=== PATIENT | female | born 1955 | race Caucasian/White ===

== ENCOUNTER 2017-05-08 21:51 | Emergency (ER) | payer BC, MEDICAID ==
[2016-11-06 11:57] VITALS: Ht 149.9 cm; Wt 72.6 kg
[~2017-05-08] VITALS: Ht 149.9 cm; Wt 72.6 kg
[2017-05-08] MEDS ORDERED: DIPHTH/TETANUS/ACEL. PERTUSSIS IM ONLY ONE (22:10)
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
[2017-05-08 22:19] VITALS: BP 127/78
== END 2017-05-08 22:26 | disposition home or self-care (01) ==
LOC: ER 22:03
DX: S00.01XA Abrasion of scalp, initial encounter (principal); W18.30XA Fall on same level, unspecified, initial encounter
CPT/HCPCS: 90471; 90715; 99284

== ENCOUNTER → 2017-05-08 | Outpatient (CLI) | payer MEDICAID ==
[2016-11-06 11:57] VITALS: BMI 31.5
[~2017-05-08] MED LIST: AGGRENOX PO; ASPI-1471 PO; CLOP75TA43 PO; DUL20 PO; DULO60CA7 PO; LISI-355 PO; LISI20TA29 PO; LORA-1455 PO; MEMA10TA3 PO; METO25TA93 PO; PRAV20TA66 PO
== END ==
LOC: AMB 21:41
PROVIDERS: ATTEND Nurse Practitioner
DX: S00.00XA Unspecified superficial injury of scalp, initial encounter (principal); R53.1 Weakness; W18.30XA Fall on same level, unspecified, initial encounter
CPT/HCPCS: A0425; A0427

== ENCOUNTER 2017-07-23 18:32 | Observation (INO) | payer MEDICAID ==
[2016-11-06 11:57] VITALS: Wt 83.0 kg
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
[2017-07-23] MEDS ORDERED: QUET25TA PO ×2 (18:49)
[2017-07-23] MEDS ORDERED: CITA-139 PO (18:49)
[2017-07-23 19:23] LABS: PLATELET COUNT, AUTOMATED 191 K/uL (150-450)
--- NOTE | 2017-07-23 19:40 | EKG ---
FACILITY: [facility] PATIENT NAME: CYNDI BOOGIE : [id number] MR: [id number] V: [id number] EXAM DATE: ORDERING PHYSICIAN: AMY EPPERSON TECHNOLOGIST: NICOLE Test Reason : AMS Blood Pressure : / mmHG Vent. Rate : 064 BPM Atrial Rate : 064 BPM P-R Int : 164 ms QRS Dur : 074 ms QT Int : 434 ms P-R-T Axes : 002 -17 057 degrees QTc Int : 447 ms Normal sinus rhythm Inferior infarct (cited on or before 18-AUG-2016) Abnormal ECG When compared with ECG of 05-NOV-2016 13:48, No significant change was found Confirmed by JASMYN ZHU ([id number]) on 07/24/2017 6:31:44 AM Referred By: Confirmed By:JASMYN ZHU
--- NOTE | 2017-07-23 19:53 | RADIOLOGY IMAGING REPORT ---
FACILITY: [facility] PATIENT NAME: Simin Prieto : 1955 MR: [id number] V: [id number] EXAM DATE: ORDERING PHYSICIAN: AMY EPPERSON TECHNOLOGIST: Location: [facility] [place] Patient: Simin Prieto : 1955 Visit/Account:[id number] Date of Sevice: 07/23/2017 CHEST SINGLE AP HISTORY: Altered mental status. COMPARISON: 08/18/2016. FINDINGS: A single portable AP view of the chest is obtained. Lines/tubes: None. Lungs/pleura: Mild linear scarring or atelectasis in the lateral left lung base. Heart: Negative. Mediastinum: Tortuous aorta with calcifications. Otherwise negative. Bony structures/body wall: Degenerative changes in the thoracic spine. No acute osseous findings. IMPRESSION: No acute cardiopulmonary process. Report Dictated By: Jefry Dalton MD at 07/23/2017 7:47 PM Report E-Signed By: Jefry Dalton MD at 07/23/2017 7:48 PM WSN:[id number]
[2017-07-23 21:21] VITALS: BP 162/84
[2017-07-23] MEDS ORDERED: LORazepam 0.5 MG TAB PO PRN (21:50)
[2017-07-23] MEDS ORDERED: INFLUENZA VIRUS VAC 0.5 ML SYR IM ONLY ONE (21:50)
--- NOTE | 2017-07-23 21:55 | History & Physical ---
History of Present Illness Chief Complaint Dementia History of Present Illness This patient was brought to the emergency room by EMS secondary to her primary caregiver being detained to behavioral health. She has advanced dementia after a stroke suffered some years ago. Her has been her primary plant health care technician, but he was detained earlier tonight. EMS decided to bring her into the emergency room because it was unsafe to leave her unattended. Arrangements for placement to the fpc were initiated in the emergency department, but could not be completed before all the offices closed. She has no complaints. History Problems: (1) Stroke (2) Dementia Status: Acute Home Meds Active Scripts Lorazepam (ATIVAN) 0.5 Mg Tablet, 0.5 MG PO BID Y for AGITATION, #20 Prov:AMY EPPERSON DO 08/18/16 Metoprolol Tartrate (METOPROLOL TARTRATE) 25 Mg Tablet, 1 TAB PO BID, #60 2 Refills TAKE ONE TABLET BY MOUTH TWICE A DAY Prov:RICKY CHAHAL MD 05/09/13 Reported Medications Quetiapine Fumarate (QUETIAPINE FUMARATE) 25 Mg Tablet, 12.5 MG PO 07/23/17 Quetiapine Fumarate (QUETIAPINE FUMARATE) 25 Mg Tablet, 25 MG PO hs 07/23/17 Citalopram Hydrobromide (CITALOPRAM HBR) 20 Mg Tablet, 20 MG PO QDAY, #5 TAB 07/23/17 Aspirin (ASPIR 81) 81 Mg Tablet.dr, 81 MG PO QDAY, TAB 08/18/16 Clopidogrel Bisulfate (PLAVIX) 75 Mg Tablet, 1 TAB PO QDAY, TAB 08/18/16 Memantine HCl 10 MG (Memantine HCl 10 MG) 10 Mg Tablet, 1 TAB PO DAILY 08/18/16 Lisinopril (LISINOPRIL) 20 Mg Tablet, 20 MG PO QDAY, TAB 08/18/16 Pravastatin Sodium (PRAVASTATIN SODIUM) 20 Mg Tablet, 20 MG PO QDAY 03/23/15 Discontinued Reported Medications Duloxetine HCl (Duloxetine HCl) 60 Mg Capsule.dr, 1 TAB PO DAILY 08/18/16 Allergies: Coded Allergies: No Known Drug Allergies (Unverified , 07/23/17) Patient History: FH: CVA (cerebrovascular accident) BROTHER OR SISTER FH: HTN (hypertension) FATHER FH: alcoholism BROTHER OR SISTER BROTHER OR SISTER FH: hyperlipidemia MOTHER Hx Smoking: No Smoking Status: Never Smoker Caffeine Intake: Soda Caffeine/Cups Per Day: 2 cups/per day Hx Alcohol Use: No Hx Substance Use Disorder: No Review of Systems All Systems Reviewed/Normal: Yes Exam Vital Signs Vital Signs Date Time Temp Pulse Resp B/P (MAP) Pulse Ox O2 Delivery O2 Flow Rate FiO2 07/23/17 21:00 123/84 (97) 07/23/17 20:47 65 94 07/23/17 18:38 99.2 20 Room Air Neuro: No Gross deficits Eyes: PERRLA Cardiovascular: Regular Rate and Rhythm Respiratory: Clear to Auscultation GI: Abd Soft and Non-Tender Extremities: No Edema Integumentary: No Cyanosis Medical Decision Making Data Points Result Diagram: 07/23/17190607/23/171906 Assessment and Plan Problems: (1) Dementia Status: Acute Assessment & Plan: She does have advanced dementia and is unable to provide care to herself. Arrangements are being made for placement to the fpc. Copies to: JASMYN MACIAS MD Venous Thromboembolism Antithrombotics Is Pt On Any Antithrombotics?: No Exam Sepsis Risk: No Definite Risk Problem Qualifiers (1) Dementia: Dementia type: Alzheimer's disease Alzheimer's disease onset: unspecified onset Dementia behavioral disturbance: with behavioral disturbance Qualified Codes: G30.9 - Alzheimer's disease, unspecified; F02.81 - Dementia in other diseases classified elsewhere with behavioral disturbance JASMYN ZHU DO Jul 23, 2017 21:55
[2017-07-24 07:25] VITALS: BP 133/78
[2017-07-24] MEDS ORDERED: CLOPIDOGREL BISULFATE 75MG TAB PO SCH (09:00)
[2017-07-24] MEDS ORDERED: METOPROLOL TART 50 MG TAB PO SCH (09:00)
[2017-07-24] MEDS ORDERED: LISINOPRIL 20 MG TAB PO SCH (09:00)
[2017-07-24] MEDS ORDERED: ASPIRIN 81 MG ENTERIC COATED PO SCH (09:00)
[2017-07-24] MEDS ORDERED: PRAVASTATIN SOD 20 MG TAB PO SCH (09:00)
[2017-07-24] MEDS ORDERED: CITALOPRAM HYDROBROM 20 MG TAB PO SCH (09:00)
[2017-07-24] MEDS ORDERED: MEMANTINE HCL 10 MG TABLET PO SCH (09:00)
--- NOTE | 2017-07-24 10:11 | Hospitalist Depart ---
Discharge Summary Reason for Hosp/Final Diag: (1) Dementia Status: Acute Hospital Course & Plan: She does have advanced dementia and is unable to provide care to herself. Arrangements are being made for placement to the custodial. 07/24: Mrs. Prieto is a 62 y.o. female with PMH of HTN, CVA, Dyslipidemia, Dementia and Depression who presented with AMS and she could not go back home due to lack of assistance at home. Therefore, she required NH placement. She is hemodynamically stable and afebrile today. She is currently receiving her home medications and hospice social worker has arranged her placement at [facility] for today. Therefore, She is being d/c'd today. [facility] Weight (Pounds): 183 Result Diagram: 07/23/17190607/23/171906 Condition: Improved Discharge: Assisted PT/OT Follow Up For: PT For Strengthening Time Spent: < 30 min Discharge Instructions Home Meds Active Scripts Lorazepam (ATIVAN) 0.5 Mg Tablet, 0.5 MG PO BID Y for AGITATION, #20 Prov:AMY EPPERSON DO 08/18/16 Metoprolol Tartrate (METOPROLOL TARTRATE) 25 Mg Tablet, 1 TAB PO BID, #60 2 Refills TAKE ONE TABLET BY MOUTH TWICE A DAY Prov:RICKY CHAHAL MD 05/09/13 Reported Medications Quetiapine Fumarate (QUETIAPINE FUMARATE) 25 Mg Tablet, 12.5 MG PO 07/23/17 Quetiapine Fumarate (QUETIAPINE FUMARATE) 25 Mg Tablet, 25 MG PO hs 07/23/17 Citalopram Hydrobromide (CITALOPRAM HBR) 20 Mg Tablet, 20 MG PO QDAY, #5 TAB 07/23/17 Aspirin (ASPIR 81) 81 Mg Tablet.dr, 81 MG PO QDAY, TAB 08/18/16 Clopidogrel Bisulfate (PLAVIX) 75 Mg Tablet, 1 TAB PO QDAY, TAB 08/18/16 Memantine HCl 10 MG (Memantine HCl 10 MG) 10 Mg Tablet, 1 TAB PO DAILY 08/18/16 Lisinopril (LISINOPRIL) 20 Mg Tablet, 20 MG PO QDAY, TAB 08/18/16 Pravastatin Sodium (PRAVASTATIN SODIUM) 20 Mg Tablet, 20 MG PO QDAY 11/24/15 Discontinued Reported Medications Duloxetine HCl (Duloxetine HCl) 60 Mg Capsule.dr, 1 TAB PO DAILY 08/18/16 Diet: Regular (Mechanical soft) Activity: As Tolerated Copies to: JASMYN MACIAS MD Venous Thromboembolism Antithrombotics Is Pt On Any Antithrombotics?: No Problem Qualifiers (1) Dementia: Dementia type: Alzheimer's disease Alzheimer's disease onset: unspecified onset Dementia behavioral disturbance: with behavioral disturbance Qualified Codes: G30.9 - Alzheimer's disease, unspecified; F02.81 - Dementia in other diseases classified elsewhere with behavioral disturbance CARLY KIDD MD Jul 24, 2017 10:11
== END 2017-07-24 13:15 ==
LOC: ER 19:02 → MED 20:20 → INTOOBSV 20:20
PROVIDERS: ADMIT Family Medicine; ATTEND Family Medicine
DX: G30.9 Alzheimer's disease, unspecified (principal); F02.81 Dementia in other diseases classified elsewhere, unspecified severity, with behavioral disturbance; I63.9 Cerebral infarction, unspecified
CPT/HCPCS: 36415; 71045; 81001; 84484; 85025; 93005; 97162; 97165; 99284; A4353; G0378; 82040; 82247; 82310; 82374; 82435; 82565; 82947; 84075; 84132; 84155; 84295; 84450; 84460; 84520

== ENCOUNTER → 2017-07-24 | Outpatient (CLI) | payer MEDICAID ==
[2016-11-06 11:57] VITALS: BMI 31.5
[~2017-07-24] MED LIST changes: +CITA-139 PO; +QUET25TA PO
== END ==
LOC: AMB 13:04
PROVIDERS: ATTEND Nurse Practitioner
DX: R53.1 Weakness (principal)
CPT/HCPCS: A0425; A0428

== ENCOUNTER → 2018-08-14 | Outpatient (REF) | payer MEDICARE, MEDICAID ==
[2016-11-06 11:57] VITALS: BMI 31.5
[~2018-08-14] MED LIST changes: -CITA-139 PO; +CITA-145 PO
[2018-08-14 11:38] LABS: LDL CHOLESTEROL 43 mg/dl
== END ==
LOC: ZZSENDIN 10:41
PROVIDERS: ATTEND Family Medicine
DX: I10 Essential (primary) hypertension (principal)
CPT/HCPCS: 36415; 82310; 82374; 82435; 82465; 82565; 82947; 83718; 84132; 84295; 84478; 84520